=== PATIENT | male | born 1945 | race Caucasian/White ===

== ENCOUNTER 2018-04-26 00:34 | Inpatient (IN) | payer OTHER, BC ==
[2018-04-26] VITALS (8 sets, daily range): BP systolic 12–176; BP diastolic 61–104
[~2018-04-26] VITALS: Ht 182.9 cm; Wt 78.1 kg
--- NOTE | ~2018-04-26 | O ---
[facility] [place] [address] OPERATIVE REPORT Name: DESIREE ROGERS Room #: 210-P [facility] IN M.R.#: [id number] Admission: 04/26/18 Attend Phys: Randell Sanchez MD Discharge: Date of : 43 Report #: [id number] THIS REPORT FOR: //name// CC: Valentin Sanchez DATE OF SERVICE: 04/27/2018 PREOPERATIVE DIAGNOSIS: Displaced unstable fracture, right femoral neck. POSTOPERATIVE DIAGNOSIS: Displaced unstable fracture, right femoral neck. PROCEDURE: Right total hip arthroplasty. SURGEON: Manny Roldan MD INDICATIONS: This slender, active, fit 72-year-old gentleman fell at home, injuring the right hip. Previously, he was fully active and independent with only mild hip pain. Here, x-rays confirm a displaced femoral neck fracture with moderate degenerative change at the joint. He also has other general medical and cardiac issues including atrial fibrillation with a rapid rate, which has been well controlled with medical management. At the time of my preoperative evaluation, the patient and family understand the situation well and we have discussed treatment options including fixation with percutaneous screws or proximal hemiarthroplasty or total hip replacement. We have discussed that he does have some degenerative osteoarthritis at the hip joint and is still active and fit. I suspect a hemiarthroplasty might cause some ongoing symptoms and problems and we have elected to go ahead with total hip replacement. DESCRIPTION OF PROCEDURE: The patient was taken to the operating room where he was placed under general anesthesia. Prophylactic intravenous antibiotics were administered. He was turned to the left lateral decubitus position. The right hip, thigh and leg were meticulously prepped and draped. A slightly curving posterolateral skin incision was made and carried through subcutaneous tissues and fascia to expose the posterior aspect of the hip joint. The short external rotators and capsule were taken down and tagged with several Tevdek sutures. The femoral neck was found to be fractured and unstable. The head was removed. The femoral neck was trimmed down to a more appropriate level. The canal was then opened with reamers and hand broaches. The Schumacher and Nephew hip system was utilized and the femur seemed best suited for a size 14 stem. Given his fracture, I considered cementing the stem, but he seems to have solid cortical bone and the x-rays of the proximal femur looked to be satisfactory. Given this, I elected to proceed with a press-fit stem. The broach seemed to fit nicely and appeared to be secure. The trial broach was removed and attention [address] [address] OPERATIVE REPORT Name: DESIREE ROGERS Room #: 210-P [facility]#: [id number] Admission: 04/26/18 Attend Phys: Randell Sanchez MD Discharge: Date of : 43 Report #: [id number] directed to the acetabulum. Good exposure was established and the acetabulum was sequentially reamed, gradually advancing to a size 58 mm reamer. A Schumacher and Nephew 3-hole hemispherical StikTite shell was then inserted. This was positioned in alignment with his true acetabulum, which placed this in about 45 degrees off of vertical and about 20 degrees of anteversion. It was impacted into position and seated nicely and appeared to be secure. In addition, 3 screws were placed through the apex hole in the shell and these engaged a good periacetabular bone with good additional fixation. A 40 mm diameter acetabular liner was then inserted. This was positioned with the 20-degree elevated pabon at about the 10 o'clock posterior position. This snapped into place and seemed to be secure. A Schumacher and Nephew size 14 Synergy porous coated high offset femoral component was impacted into the canal. It seated nicely and appeared to be secure. A trial reduction was performed with several neck lengths and a +8 mm neck length seemed to fit most appropriately. This resulted in good alignment, range of motion, stability and satisfactory leg length. The permanent 40 mm cobalt chrome head with a +8 mm neck length was then selected and impacted on to the [place] taper neck. The hip was reduced, once again alignment, range of motion, stability and leg length seemed to be satisfactory. The wound was copiously irrigated. Good hemostasis was established. The capsule and short external rotators were then repaired back to bone using the #1 Tevdek sutures, passed through drill holes in the greater trochanter. A single Hemovac was left deep to the fascia exiting through a separate stab incision. The fascia was then closed with multiple #1 Vicryl sutures. The subcutaneous tissues were closed with 0 Monocryl. The skin was closed with skin jason. A sterile dressing was applied. The patient was awakened and returned to recovery room in good condition. By: 1006 1022 Manny Roldan MD /chayito
[~2018-04-26 00:34] MED LIST: CIPROFLOXACIN500 M1 PO; FLOMAX0.4 MG PO; LISINOPRIL-HCT1 EACH PO; NORCO 5-325 TA1 EACH PO
[2018-04-26] MEDS ORDERED: LISINOPRIL40 MG PO (00:46)
[2018-04-26 00:50] LABS: BASOPHILS 0.6 % (0.0-2.0); EOSINOPHILS 1.9 % (0.0-3.0); HEMOGLOBIN 14.9 gm/dL (14.0-18.0); LYMPHOCYTES 18.4 % (24.0-44.0); MCH 30.2 pg (26.0-34.0); MONOCYTES 5.6 % (1.0-8.0); PLATELET COUNT 161 thou/uL (150-400); POLYS 73.5 % (36.0-66.0); RBC 4.94 mil/uL (4.50-6.00); RDW 13.8 % (10.5-14.5); WBC 9.5 thou/uL (4.0-11.0)
[2018-04-26 00:58] LABS: ANION GAP 10 mmol/L (7-16); BUN 35 mg/dL (7-18); CALCIUM 9.4 mg/dL (8.5-10.1); CHLORIDE 106 mmol/L (98-107); CO2 27 mmol/L (21-32); CREATININE 1.5 mg/dL (0.7-1.3); GLUCOSE 117 mg/dL (74-106); POTASSIUM 3.8 mmol/L (3.5-5.1); SODIUM 143 mmol/L (136-145)
[2018-04-26 01:00] LABS: APTT 24.9 Seconds (24.5-32.8); PROTIME 10.8 Seconds (9.3-11.4)
[2018-04-26 01:06] LABS: ALBUMIN 3.6 g/dL (3.4-5.0); MAGNESIUM 1.9 mg/dL (1.8-2.4); SGOT 20 U/L (15-37); SGPT 33 U/L (30-65); TOTAL BILIRUBIN 0.4 mg/dL (<0.1-1.0); TOTAL PROTEIN 7.1 g/dL (6.4-8.2); TROPONIN-I <0.06 ng/mL (<0.06)
--- NOTE | 2018-04-26 05:29 | NUR ---
PT WAS AN ER ADMIT WHO CAME UP TO THE FLOOR AT 0130AM WITH HIP FRACTURE AND AFIB. PT WAS ON CARDIZEM DRIP FOR AFIB WITH RVR. PT IS STABLE AT DENIES MINIMUM PAIN WITH MOVEMENT, DAUGHTER IS PRESENT AT BEDSIDE. PT IS ALERT AND ORIENTED WITH NO SIGN OF DISTRESS NOTED IN PT. ADMISSION ASSESSMENT AND EDUCATION COMPLETED WITH PATIENT AND DAUGHTER. CARDIZEM BOLUS WAS ORDERED BY WATER PROOFER DUE TO CONTINONUS ELEVATED HR. PT CONVERTED BACK TO SINUS BRADYCARDIA AT 0327AM. PT IS ON ROOM AIR, VITAL SIGNS STABLE. DENIES ANY FURTHER NEEDS AT THIS TIME.
--- NOTE | 2018-04-26 08:54 | EKG ---
[address] [address] ELECTROCARDIOGRAM REPORT Name: DESIREE ROGERS Room #: 206-P ADM IN M.R.#: [id number] Admission: 04/26/18 Attend Phys: Randell Sanchez MD Discharge: Date of : 43 Report #: [id number] THIS REPORT FOR: //name// [facility] ED Test Date: 2018-04-26 Test Time: 00:42:57 Pat Name: DESIREE ROGERS Department: Room: 206 Gender: M Director Of Institutional Sales: ANTIONETTE : 1945 Requested By: Sander Marquis Order Number: [id number] MD: Oz Slater Measurements Intervals [place] Rate: 155 P: [place]: QRS: 2 QRSD: 84 T: 26 QT: 307 QTc: 493 Interpretive Statements Atrial fibrillation with rapid V-rate Right ventricular conduction delay Repolarization abnormality, prob rate related Baseline wander in lead(s) V6 No previous ECG available for comparison Electronically Signed On 04-26-2018 8:54:44 CAR COUPLER by Oz Slater [email or web address] <ELECTRONICALLY SIGNED> By: Oz Slater MD, [facility] 04/26/18 0854 004 Oz Slater MD, [facility] /EPI
--- NOTE | 2018-04-26 09:33 | 2DMMODE ---
[facility] [address] [place] [address] 2 D/M-MODE ECHOCARDIOGRAM Name: DESIREE ROGERS Room #: 206-P ADM IN ..#: [id number] Admission: 04/26/18 Attend Phys: Randell Sanchez MD Discharge: Date of : 41 Date of Service: 04/26/18 0933 Report #: [id number] THIS REPORT FOR: //name// APPROVED REPORT Study performed: 04/26/2018 08:22:51 EXAM: Comprehensive 2D, Doppler, and color-flow Echocardiogram Patient Location: Bedside Room #: 206 Status: routine BSA: 1.97 HR: 63 bpm BP: 107/61 mmHg Rhythm: NSR Other Information Study Quality: Adequate Indications Atrial Fibrillation Hypertension/HDD 2D Dimensions RVDd: 32.80 mm IVSd: 12.46 (7-11mm) LVOT Diam: 19.10 (18-24mm) LVDd: 42.68 mm PWd: 11.67 (7-11mm) Ascending Ao: 29.80 (22-36mm) LVDs: 29.36 (25-40mm) Aortic Root: 31.15 mm IVC: 14.00 mm Volumes Left Atrial Volume (Systole) Single Plane 4CH: 36.07 mL Single Plane 2CH: 24.80 mL LA ESV Index: 17.00 mL/m2 Aortic Valve AoV Peak Isaias.: 1.43 m/s AO Peak Gr.: 8.20 mmHg LVOT Max P.28 mmHg LVOT Max V: 1.15 m/s CHAZ Vmax: 2.30 cm2 Mitral Valve E/A Ratio: 1.0 MV Decel. Time: 230.91 ms MV E Max Isaias.: 1.01 m/s [facility] [address] [place] [address] 2 D/M-MODE ECHOCARDIOGRAM Name: ROGERSDESIREE L Room #: 206-[facility] IN [facility].#: [id number] Admission: 04/26/18 Attend Phys: Randell Sanchez MD Discharge: Date of : 41 Date of Service: 04/26/18 0933 Report #: [id number] MV A Isaias.: 0.97 m/s MV PHT: 66.96 ms IVRT: 87.66 ms Pulmonary Valve PV Peak Isaias.: 0.97 m/s PV Peak Gr.: 3.81 mmHg Pulmonary Vein P Vein S: 0.46 m/s P Vein A: 0.33 m/s P Vein D: 0.35 m/s P Vein A Dur.: 110.7 msec P Vein S/D Ratio: 1.31 Tricuspid Valve TR Peak Isaias.: 2.68 m/s TR Peak Gr.: 28.80 mmHg PA Pressure: 33.00 mmHg Left Ventricle The left ventricle is normal size. There is normal LV segmental wall motion. There is normal left ventricular wall thickness. The left ventricular systolic function is normal. The left ventricular ejection fraction is within the normal range. LVEF is 55-60%. The left ventricular diastolic function is normal. Right Ventricle The right ventricle is normal size. The right ventricular systolic function is normal. Atria The left atrium size is normal. The right atrium size is normal. Aortic Valve The aortic valve is normal in structure. No aortic regurgitation is present. There is no aortic valvular stenosis. Mitral Valve The mitral valve is normal in structure. Trace mitral regurgitation. No evidence of mitral valve stenosis. Tricuspid Valve The tricuspid valve is normal in structure. There is trace to mild tricuspid regurgitation. Estimated PAP 33 mmHg. There is mild pulmonary hypertension. [place] [id number] 2 D/M-MODE ECHOCARDIOGRAM Name: DESIREE ROGERS Room #: 206-P ADM IN M.R.#: [id number] Admission: 04/26/18 Attend Phys: Randell Sanchez MD Discharge: Date of : 41 Date of Service: 04/26/18 0933 Report #: [id number] Pulmonic Valve The pulmonary valve is normal in structure. There is no pulmonic valvular regurgitation. Great Vessels The aortic root is normal in size. IVC is normal in size and collapses >50% with inspiration. <Conclusion> The left ventricle is normal size. There is normal left ventricular wall thickness. The left ventricular systolic function is normal. The right ventricle is normal size. The left atrium size is normal. The right atrium size is normal. The aortic valve is normal in structure. Trace mitral regurgitation. There is trace to mild tricuspid regurgitation. Estimated PAP 33 mmHg. <ELECTRONICALLY SIGNED> By: Jeremias Beltran MD 04/26/1833 2 2 Jeremias Beltran MD /INF
[2018-04-26 13:23] LABS: URINE BILIRUBIN NEGATIVE (Negative); URINE BLOOD 1+ (Negative); URINE CLARITY CLOUDY; URINE COLOR YELLOW; URINE GLUCOSE-RANDOM* NEGATIVE (Negative); URINE KETONES NEGATIVE (Negative); URINE LEUKOCYTES-REFLEX 3+ (Negative); URINE NITRITE-REFLEX NEGATIVE (Negative); URINE PROTEIN (DIPSTICK) NEGATIVE (Negative); URINE SPECIFIC GRAVITY >= 1.030 (1.005-1.035); URINE UROBILINOGEN 0.2 E.U./dl (0.2-1.0)
[2018-04-26 13:28] LABS: SQUAMOUS 0-3 Few /LPF (0-3)
[2018-04-26 13:29] LABS: AMORPHOUS URATES Few /LPF (None Seen); CASTS None Seen /LPF (None Seen); URINE RBC 0-2 Rare /HPF (0-2); URINE WBC-REFLEX >25 Many /HPF (0-5)
--- NOTE | 2018-04-26 16:56 | NUR ---
Case opened to follow for dc planning needs. Pt admitted with hip fx from a fall in his driveway and is currently on the tele for afib/rvr. Possible surgery tomorrow. Marketing Developer visited with the pt and his Terra at bedside. He is a&ox4 and was indep and active prior to admission. They live in a ranch style home with one step to enter. Terra has MS and uses a scooter. She is indep with adl's but does not drive. Cm role introduced along with potential dc planning for HH services or [place] SNF listing provided. Pt is hopeful he will be WBAT postop and do well enough to go home with hh. They deny any hh preference. He does not use an assistive device. Support provided. Will follow along for rehab recommendations.
--- NOTE | 2018-04-26 17:28 | NUR ---
assessment a s charted - meds as per jun - patient given morphine x 3 doses for co's of pain in r hip with mod effect. winston diet and fluids. with no co's of nausea. pt has been resting in bed this shift - to caat scan for hip scan - pt to have r total hip tomorrow am. pt @ 1325 noted to hav eincresed heart rate - pt had gone back into a fib rate as high as 140-150's Jennifer STORE GROCERY MERCHANDISER ntoifed and patient given lopressor 5 mgs iv with rate dropping into the 60-90's occassionaly jumps up into the 120's and then comes back down. at the bedside for the day. no co's at the present time. will be staying with patient thonight - will transfer to room 210 so that she is able to sleep.
--- NOTE | 2018-04-26 17:52 | NUR ---
assessment as charted - meds as per mar - no co's of pain or nausea. winston diet and fluids. pt extremely unsteady on feet - does not use the wlaker safely - each time patient stands she is incontinent of urine/ brief placed - when pulled down patient incont on floor insreasing her risk for falling. patient does not use precautions when going to sit in chair. patient us been up to the chair for lunch and dinner, seen by phys therapy. pt confused/forgetful at time not sure of where she is and what is happening. wu made med/surg patient this am - moniotr removed. no co's at the present time.
--- NOTE | 2018-04-26 22:20 | EKG ---
[address] [address] ELECTROCARDIOGRAM REPORT Name: DESIREE ROGERS Room #: 210-P ADM IN M.R.#: [id number] Admission: 04/26/18 Attend Phys: Randell Sanchez MD Discharge: Date of : 43 Report #: [id number] THIS REPORT FOR: //name// [facility] Test Date: 2018-04-26 Test Time: 13:57:09 Pat Name: DESIREE ROGERS Department: Room: 210 Gender: M Jig Borer: Olayinka MARINO : 1945 Requested By: Jennifer Frederick Order Number: [id number] MD: Nirav Hill Measurements Intervals [place] Rate: 112 P: [place]: QRS: 51 QRSD: 99 T: -58 QT: 328 QTc: 448 Interpretive Statements Atrial fibrillation Borderline repolarization abnormality Compared to ECG 04/26/2018 00:42:57 No significant changes Electronically Signed On 04-26-2018 22:20:12 MAINTAINER PLANT by Nirav Hill [email or web address] <ELECTRONICALLY SIGNED> By: Nirav Hill MD 04/26/18 2220 D: 01/1356 56 Nirav Hill MD /SHARITA
--- NOTE | 2018-04-27 04:17 | NUR ---
ASSESSMENT DOCUMENTED.PT RESTING IN NO ACUTE DISTRESS AT THIS TIME.VSS.PT BEEN SR ALL NOC UNTIL AROUND 0330 THIS AM THAT HE WENT INTO AFIB WITH HR IN 130S-140S AFTER GETTING ONTO THE BEDPAN.EKG COMPLETED SHOWING AFIB/AFLUTTER.METOPROLOL IVP 5MG GIVEN PER ORDERS WITH HR INSTANLY DROPPING TO 70S.CURRENTLY HR AT 90 WITH EPISODES JUMPING TO LOW 100S.COMMERCIAL ENERGY RATER NOTIFIED ADVISED TO KEEP MONITORING.PT NPO AFTER MIDNOC FOR R HIP PROCEDURE TODAY.MORPHINE GIVEN FOR HIP PAIN WITH PARTIAL RELIEF.WILL CONT TO MONITOR PER POC.
[2018-04-27 04:54] LABS: HEMATOCRIT 38.4 % (42.0-52.0); MCH 29.9 pg (26.0-34.0); MCHC 33.1 g/dL (28.0-37.0); MCV 90.6 fL (80.0-100.0); RBC 4.24 mil/uL (4.50-6.00); RDW 14.1 % (10.5-14.5)
[2018-04-27 04:59] VITALS: BP 148/93
[2018-04-27 05:01] LABS: HEMOGLOBIN 12.7 gm/dL (14.0-18.0)
[2018-04-27 05:08] LABS: CALCIUM 8.2 mg/dL (8.5-10.1); CREATININE 1.1 mg/dL (0.7-1.3); MAGNESIUM 1.8 mg/dL (1.8-2.4); POTASSIUM 3.7 mmol/L (3.5-5.1)
--- NOTE | 2018-04-27 06:12 | NUR ---
DR ANNE NOTIFIED OF THE PT CHANGES IN HR AND RHYTHM FROM SR/SB TO AFIB/AFLUTTER WITH HR LOW IN 50S AND HIGH 130S.DR MADSEN INSTRUCTED TO KEEP MONITORING PT UNLESS PT IS SUSTAINING HR>100.PT DENIES ANY DISCOMFORT AT THIS TIME.
[2018-04-27 07:04] VITALS: BP 152/68
--- NOTE | 2018-04-27 07:43 | HC ---
[facility] [place] [address] [place] [address] CONSULTATION Name: DESIREE ROGERS Room #: 210-P [facility] IN M.R.#: [id number] Admission: 04/26/18 Attend Phys: Randell Sanchez MD Discharge: Date of : 43 Report #: [id number] THIS REPORT FOR: //name// CC: Valentin Sanhcez DATE OF SERVICE: 04/26/2018 CHIEF COMPLAINT: Right femoral neck fracture. HISTORY OF PRESENT ILLNESS: This healthy, active 72-year-old gentleman stumbled and fell injuring the right hip. X-rays and CT scan confirmed a fracture of the femoral neck, which is impacted and displaced moderately. He also has moderate degenerative osteoarthritis of the hip. His medical history is also notable for tachycardia with apparent atrial fibrillation, which is being evaluated and treated at this time. At the time of my evaluation, he is alert and oriented and his heart rate and rhythm appeared to be normal. His family is with him and we have had a lengthy discussion regarding his history and current findings. They note that he has been generally fit and active and has not had significant hip pain nor previous falls or problems. He had no significant problems prior to this new event, but now is quite uncomfortable and has difficulty with any movement of the right hip. He denies any other areas of injury. We discussed the nature of the fracture and treatment options. We have reviewed the potential for nonsurgical management or surgical management with fixation using percutaneous screws or TFN nail. We have also reviewed replacement of the fractured head and neck with either a hemiarthroplasty or total hip replacement. Given that he is generally fit and active and given the location and nature of the fracture, I think either hemiarthroplasty or total hip replacement is probably the best option. He does have moderate hip arthritis, but is otherwise rather fit and active. Consequently, I think total hip replacement may be the best option. His family have considered this and agreed, would like to proceed. Pending cardiac clearance, we may be able to proceed tomorrow morning and I believe I have secured a 7:30 start time for his surgery. We will plan to proceed with right total hip arthroplasty at that time. <ELECTRONICALLY SIGNED> By: Manny Roldan MD 04/27/18 0743 [id number] [id number] Manny Roldan MD /nt
--- NOTE | 2018-04-27 09:10 | EKG ---
[address] [address] ELECTROCARDIOGRAM REPORT Name: DESIREE ROGERS Room #: 210-P ADM IN M.R.#: [id number] Admission: 04/26/18 Attend Phys: Randell Sanchez MD Discharge: Date of : 43 Report #: [id number] THIS REPORT FOR: //name// [facility] Test Date: 2018-04-27 Test Time: 03:56:08 Pat Name: DESIREE ROGERS Department: Room: 210 P Gender: M Licensing Court Magistrate: [email or web address] : 1945 Requested By: Randell Sanchez Order Number: [id number] MD: Oz Slater Measurements Intervals [place] Rate: 95 P: [place]: QRS: 3 QRSD: 109 T: 60 QT: 358 QTc: 450 Interpretive Statements Atrial fibrillation Septal infarct, age indeterminate Compared to ECG 04/26/2018 13:57:09 Heart rates have slowed Electronically Signed On 04-27-2018 9:10:24 INCINERATOR PLANT LABORER by Oz Slater [email or web address] <ELECTRONICALLY SIGNED> By: Oz Slater MD, [facility] 04/27/18 0910 0356 5 Oz Slater MD, [facility] /EPI
--- NOTE | 2018-04-27 09:10 | EKG ---
[address] [place] [address] ELECTROCARDIOGRAM REPORT Name: DESIREE ROGERS Room #: 210-P ADM IN M.R.#: [id number] Admission: 04/26/18 Attend Phys: Randell Sanchez MD Discharge: Date of : 43 Report #: [id number] THIS REPORT FOR: //name// [facility] Test Date: 2018-04-27 Test Time: 03:48:40 Pat Name: DESIREE ROGERS Department: Room: 210 P Gender: M Mangle Roller: : 1945 Requested By: Cris Estrella Order Number: [id number] MD: Oz Slater Measurements Intervals [place] Rate: 144 P: [place]: QRS: -6 QRSD: 85 T: QT: 375 QTc: 581 Interpretive Statements Atrial fibrillation Anteroseptal infarct, old Repolarization abnormality, prob rate related Prolonged QT interval Compared to ECG 04/26/2018 13:57:09 ST and T wave abnormality is more pronounced Electronically Signed On 04-27-2018 9:09:58 ASSOCIATE TEACHER by Oz Slater [email or web address] <ELECTRONICALLY SIGNED> By: Oz Slater MD, [facility] 04/27/18 0909 [id number] [id number] Oz Slater MD, [facility] /EPI
--- NOTE | 2018-04-27 17:25 | NUR ---
ASSESSMENT CHARTED - PT TO SURG THIS AM FOR TOTAL HIP REPLACEMENT. - VSS POST OP HAVE BEEN STABLE - INCSION C/D/I - WITH YUNG DRESSING AND HAMOVAC INSITU. ANY DIET AND FLUIDS. MEDS PER JUN - GIVEN HYDROCODONE FOR CO'S OF PAIN WITH GOOD RELIEF. PT WITH TEDS ON BLIAT - ICE PACK TO R HIP. PTPSOT UP WITH RATE UP IN THE 150'S GIVEN LOPRESSOR IV ORDERED - RATE DOWN TO THE LOW 100'S AND IS AT PRESENT IN THE 60'S PT APPEARS TO BE IN EITHER AFIB OR SR. FLUIDS RUNNING ORDERED - EDUCATION ON POST OP INCISION CARE GIVEN TO AND PATIENT. NO CO'S AT THE PRESENT TIME.
[2018-04-27 19:06] VITALS: BP 110/71
[2018-04-28 00:36] VITALS: BP 106/72
--- NOTE | 2018-04-28 01:46 | NUR ---
ASSESSMENTS CHARTED. PATIENT BACK IN AFIB, RESTARTED ON IV CARDIZEM. ICE PACK MAINTAINED THROUGH SHIFT.
[2018-04-28 05:30] LABS: HEMATOCRIT 30.7 % (42.0-52.0); MCH 30.9 pg (26.0-34.0); MCHC 34.8 g/dL (28.0-37.0); MCV 88.7 fL (80.0-100.0); RBC 3.46 mil/uL (4.50-6.00); RDW 13.5 % (10.5-14.5); WBC 15.3 thou/uL (4.0-11.0)
[2018-04-28 05:36] VITALS: BP 105/55
[2018-04-28 05:47] LABS: HEMOGLOBIN 10.7 gm/dL (14.0-18.0)
[2018-04-28 08:00] VITALS: BP 111/60
[2018-04-28 12:19] VITALS: BP 131/62
[2018-04-28 16:00] VITALS: BP 133/63
--- NOTE | 2018-04-28 17:01 | NUR ---
ASSESSMENTS CHARTED - MEDS [PER MAR - GIVEN FLECAINIDE THIS AM AND IV CARDIZEM D/C'D. PT WITH CO'S OF NO BM - GIVEN 1/2 BOTTLE OF MAG CITRATE AND STOOL SOFTNER STARTED AND PATIENT IN BATHROOM AT PRESENT TIME. PT STARTED ON CEFTIN ORDERED. GIVEN HYDROCODONE X 2 DOSES FOR PAIN PRIOR TO THERAPY TODAY - PATIENT HAS STATED THAT PAIN HAS BEEN UNDERCONTROL. PT UP TO THE CHAIR. AMBULATED TO THE BATHROOM WITH THE USE OF WALKER. NO CO'S AT THE PRESENT TIME.
[2018-04-28 20:04] VITALS: BP 150/68
[2018-04-29 03:57] VITALS: BP 146/78
[2018-04-29 05:38] LABS: BASOPHILS 0.2 % (0.0-2.0); EOSINOPHILS 0.7 % (0.0-3.0); HEMATOCRIT 29.4 % (42.0-52.0); HEMOGLOBIN 10.3 gm/dL (14.0-18.0); LYMPHOCYTES 8.7 % (24.0-44.0); MCH 31.3 pg (26.0-34.0); MCHC 34.9 g/dL (28.0-37.0); MCV 89.8 fL (80.0-100.0); PLATELET COUNT 136 thou/uL (150-400); POLYS 82.4 % (36.0-66.0); RBC 3.28 mil/uL (4.50-6.00); RDW 13.8 % (10.5-14.5); WBC 10.9 thou/uL (4.0-11.0)
[2018-04-29 05:52] LABS: CALCIUM 8.3 mg/dL (8.5-10.1); CREATININE 1.1 mg/dL (0.7-1.3); MAGNESIUM 2.4 mg/dL (1.8-2.4); POTASSIUM 3.9 mmol/L (3.5-5.1)
[2018-04-29 08:00] VITALS: BP 132/63
--- NOTE | 2018-04-29 12:18 | NUR ---
ASSUMED PATIENT CARE THIS AM. PATIENT LYING IN BED, A&O. ROOM AIR. HEMOVAC DRAIN REMOVED THIS AM. YUNG DRESSING C/D/I. PAIN MANAGED WITH ORAL MEDICATION. LOW FALL RISK. PATIENT USES CALL LIGHT APPROPRIATLY. UP X1 ASSIST WITH GAIT BELT AND WALKER, STEADY GAIT. PATIENT UP WITH PHYSICAL THERAPY THIS AM. NO COMPLAINTS STATED. TOLERATING DIET. PLAN TO MONITOR SURGICAL ASST, CONTINUE WITH MEDICATION REGIMEN, PLAN TO DISCHARGE AFTER SAFE FROM CARDIOLOGY STAND POINT, POSSIBLY 1-[address] FLORES THIS AM. PATIENT AGREES WITH PLAN OF CARE. FAMILY AT BEDSIDE AT THIS TIME.
[2018-04-29 12:52] VITALS: BP 127/64
[2018-04-29 16:00] VITALS: BP 168/70
--- NOTE | 2018-04-29 19:23 | NUR ---
PATIENT BLADDER SCANNED THIS AFTERNOON, SHOWED >999ML. DR. OCASIO PAGEEva, ORDERS RECIEVED.
[2018-04-29 20:19] VITALS: BP 144/91
[2018-04-30] VITALS (7 sets, daily range): BP systolic 106–168; BP diastolic 50–86
--- NOTE | 2018-04-30 02:52 | NUR ---
RECEIVED PATIENT FOR STRAIGHT CATHETERIZATION, PATIENT UNABLE TO PEE. STRAIGHT CATH USING ASEPTIC TECHNIQUE DONE, LIGHT YELLOWISH URINE OUTPUT OF 600 ML NOTED. AOX4. HR 120'S TO 130'S, SINUS ARRYTHMIA TO FLUTTER NOTED. PRN METOPROLOL GIVEN. PULSES 2+/2+. DENIES PAIN. DENIES NUMBNESS OR TINGLING SENSATION. CLEAR LUNG SOUNDS. ON ROOM AIR. BS+, ABDOMEN SOFT NON TENDER. RIGHT HIP INCISION DRESSING C/D/I. THIGH HIGH JOSE ALEJANDRO HOSE ON. ABDUCTOR PILLOW APPILED. RIGHT WRIST IV INTACT AND FLUSHES WELL. FF UP POC.
[2018-04-30 11:17] LABS: URINE BILIRUBIN NEGATIVE (Negative); URINE BLOOD TRACE (Negative); URINE CLARITY CLEAR; URINE COLOR YELLOW; URINE GLUCOSE-RANDOM* NEGATIVE (Negative); URINE KETONES NEGATIVE (Negative); URINE LEUKOCYTES NEGATIVE (Negative); URINE NITRITE NEGATIVE (Negative); URINE PROTEIN (DIPSTICK) NEGATIVE (Negative); URINE UROBILINOGEN 0.2 E.U./dl (0.2-1.0)
--- NOTE | 2018-04-30 13:18 | NUR ---
met with patient and at bedside. Patient worked with therapy today who recommends home with HH. Discussed with patient who cont plan for home with HH. No preference for HH agency and agreeable to [facility]. Will need walker for home. Provider Plus notified. Patient has one step to enter home then all needs on one level.
--- NOTE | 2018-04-30 18:09 | NUR ---
ASSUMED CARE OF PT AT SHIFT CHANGE. ASSESSMENTS CHARTED. MEDS GIVEN PER JUN. PT AOX4, VSS, PT WAS TACHYCARDIC THIS AM IN 130S, IV METOPROLOL GIVEN, TACHYCARDIA RESOLVED SINCE. C/O PAIN ONCE DURING SHIFT, MANAGED WITH PO PAIN MEDS. PT GOT UP WITH PHYSICAL THERAPY TWICE THIS SHIFT, TOLERATED WELL. SPOUSE AT BEDSIDE THROUGHOUT DAY. URINE OUTPUT ADEQUATE, PT HAS BEEN USING URINAL, THIS NURSE DID NOT FEEL IT WAS NECESSARY TO BLADDER SCAN SINCE PT WAS URINATING WELL. PT DID MENTION A SLIGHT BURNING WHEN URINATING, PROVIDER AWARE, ORDERS RECEIVED FOR UA-- REFER TO RESULTS. PT HAS STATED BURNING HAS RESOLVED SINCE.
[2018-05-01 04:43] LABS: CALCIUM 8.4 mg/dL (8.5-10.1); CREATININE 1.1 mg/dL (0.7-1.3); MAGNESIUM 2.2 mg/dL (1.8-2.4); POTASSIUM 3.9 mmol/L (3.5-5.1)
[2018-05-01 04:44] LABS: HEMATOCRIT 29.9 % (42.0-52.0); HEMOGLOBIN 10.3 gm/dL (14.0-18.0); MCH 30.5 pg (26.0-34.0); MCHC 34.5 g/dL (28.0-37.0); MCV 88.6 fL (80.0-100.0); RBC 3.38 mil/uL (4.50-6.00); RDW 13.7 % (10.5-14.5); WBC 8.3 thou/uL (4.0-11.0)
[2018-05-01 04:56] VITALS: BP 135/81
--- NOTE | 2018-05-01 06:13 | NUR ---
ASSUMED CARE AT 1900. PT ALERT AND ORIENTED. DENIES PAIN. DRESSING ON RIGHT HIP INTACT. PT WAS TACHY IN 120S AT THE BEGINNING SHIFT AND HAD PREVIOUS RECEIVED METOPROLOL 50 ER. HR CONTROLLED AFTER 1 HOUR . NO TACHY > 120. REFUSED HIS PHENAZOPYRIDINE. PT STATES HE DOES NOT NEED IT BECAUSE HE IS VOIDING OK NOW. WILL CONTINUE TO MONITOR.
[2018-05-01 08:06] VITALS: BP 105/61
--- NOTE | 2018-05-01 08:21 | EKG ---
[address] [address] ELECTROCARDIOGRAM REPORT Name: DESIREE ROGERS Room #: 210-P ADM IN M.R.#: [id number] Admission: 04/26/18 Attend Phys: Randell Sanchez MD Discharge: Date of : 41 Report #: [id number] THIS REPORT FOR: //name// [facility] Test Date: 2018-05-01 Test Time: 07:35:02 Pat Name: DESIREE ROGERS Department: Room: 210 P Gender: M Interior Wall Assembler: YARELI : 1945 Requested By: Suzanne Ruelas Order Number: [id number] MD: Oz Slater Measurements Intervals [place] Rate: 112 P: MI: QRS: 40 QRSD: 122 T: 122 QT: 311 QTc: 425 Interpretive Statements Atrial flutter Right ventricular conduction delay Anteroseptal infarct, old Compared to ECG 04/27/2018 03:56:08 no significant change was found Electronically Signed On 05-01-2018 8:21:32 MANUFACTURING STOREPERSON by Oz Slater [email or web address] <ELECTRONICALLY SIGNED> By: Oz Slater MD, [facility] 05/01/18 0821 4 4 Oz Slater MD, [facility] /EPI
[2018-05-01] MEDS ORDERED: XARELTO10 MG PO (12:46)
[2018-05-01] MEDS ORDERED: TAMBOCOR 100 M100 M1 PO (12:46)
[2018-05-01] MEDS ORDERED: SENNA8.6 MG PO (12:47)
[2018-05-01] MEDS ORDERED: METOPROLOL SUCC50 MG PO (12:47)
[2018-05-01] MEDS ORDERED: PHENAZOPYRIDIN100 M1 PO (12:47)
[2018-05-01] MEDS ORDERED: CEFDINIR300 MG PO (12:48)
[2018-05-01 12:49] VITALS: BP 95/55
--- NOTE | 2018-05-01 12:57 | NUR ---
PT. DISCHARGING TODAY TO HOME WITH [facility]. NOTIFIED CANDACE IN ADM. AT [facility] OF DISCHARGE AND DC ORDERS COMPLETE. DCP ARRANGED TRANSPORT [facility] FOR PT. AND FOR [id number].
[2018-05-01 13:33] VITALS: BP 168/62
[2018-05-01 14:16] VITALS: BP 130/69
--- NOTE | 2018-05-01 14:18 | NUR ---
PATIENT TO DC HOME WITH HH. [facility] AWARE ORDERS IN CHART. WALKER DELIVERED TO ROOM. AND SPOUSE NEED TRANSPORT HOME. HAS A SCOOTER CHAIR, SHE HAS MS. DC EYEGLASS CUTTER ARRANGED [facility] FOR HOME.
--- NOTE | 2018-05-01 16:56 | NUR ---
ASSUMED CARE OF PT AT SHIFT CHANGE. ASSESSMENTS CHARTED. MEDS GIVEN PER JUN. PT AOX4, VSS, PT C/O PAIN BUT DID NOT FEEL NEEDED PAIN MEDS. SPOUSE AT BEDSIDE THROUGHOUT SHIFT. PT GOT UP WITH PT, TOLERATED WELL. URINE OUTPUT ADEQUATE, NO C/O PAIN/BURNING/HESITANCY WHILE URINATING. PT REMAINED SINUS CARLITOS TO SINUS RHYTHM ON MONITOR. O2 SATS REMAINED WNL ON ROOM AIR. NO S/SX OF CARDIAC OR RESP DISTRESS NOTED. RECEIVED ORDERS FOR DISCHARGE. PT AND PT SPOUSE EDUCATED ON DISCHARGE INFO, COMMUNICATES UNDERSTANDING. TELE TAKEN OFF, IV REMOVED. PT LEFT UNIT WITH ALL BELONGINGS AT APPROX 1600.
== END 2018-05-01 16:15 | disposition home health service (06) | DRG 853 ==
LOC: ER 00:34 → 2N 00:51 → EROBS 00:51 → 2N 01:29
PROVIDERS: Emergency Medicine; Orthopaedic Surgery; ADMIT Internal Medicine
PROC: 0SR901A Replacement of Right Hip Joint with Metal Synthetic Substitute, Uncemented, Open Approach (ICD-10-PCS; principal; 2018-04-27)
DX: A41.9 Sepsis, unspecified organism (principal); S72.001A Fracture of unspecified part of neck of right femur, initial encounter for closed fracture; N17.9 Acute kidney failure, unspecified; N39.0 Urinary tract infection, site not specified; I48.3 Typical atrial flutter; D64.9 Anemia, unspecified; M16.11 Unilateral primary osteoarthritis, right hip; N18.3 Chronic kidney disease, stage 3 (moderate); I48.0 Paroxysmal atrial fibrillation; K59.00 Constipation, unspecified; N40.0 Benign prostatic hyperplasia without lower urinary tract symptoms; R41.81 Age-related cognitive decline; I12.9 Hypertensive chronic kidney disease with stage 1 through stage 4 chronic kidney disease, or unspecified chronic kidney disease; W00.0XXA Fall on same level due to ice and snow, initial encounter; Y93.89 Activity, other specified; Y92.89 Other specified places as the place of occurrence of the external cause; Y99.8 Other external cause status; Z85.51 Personal history of malignant neoplasm of bladder; Z87.442 Personal history of urinary calculi; Z87.891 Personal history of nicotine dependence; Z79.82 Long term (current) use of aspirin; Z79.899 Other long term (current) drug therapy
CPT/HCPCS: 10081; 50010; 50101; 50382; 50414; 50455; 51412; 51771; 53000; 53367; 56521; 56525; 56527; 57095; 57103; 62110; 62900; 70005

== ENCOUNTER → 2018-05-31 | Outpatient (CLI) | payer OTHER, BC ==
[~2018-05-31] MED LIST changes: +CEFDINIR300 MG PO; +LISINOPRIL40 MG PO; +METOPROLOL SUCC50 MG PO; +PHENAZOPYRIDIN100 M1 PO; +SENNA8.6 MG PO; +TAMBOCOR 100 M100 M1 PO; +XARELTO10 MG PO
== END ==
LOC: NUC 08:13
DX: I48.91 Unspecified atrial fibrillation (principal); I48.92 Unspecified atrial flutter; R94.31 Abnormal electrocardiogram [ECG] [EKG]; I10 Essential (primary) hypertension

== ENCOUNTER 2018-06-12 15:38 | Inpatient (IN) | payer OTHER, BC ==
[~2018-06-12] VITALS: Ht 182.9 cm; Wt 77.9 kg
[2018-06-12 18:12] LABS: ABSOLUTE NEUTROPHILS 5.3 thou/uL (1.4-8.2); BASOPHILS 0.5 % (0.0-2.0); EOSINOPHILS 2.3 % (0.0-3.0); HEMATOCRIT 38.6 % (42.0-52.0); HEMOGLOBIN 12.7 gm/dL (14.0-18.0); LYMPHOCYTES 13.3 % (24.0-44.0); MCH 29.7 pg (26.0-34.0); MCHC 32.8 g/dL (28.0-37.0); MCV 90.4 fL (80.0-100.0); MONOCYTES 5.9 % (1.0-8.0); PLATELET COUNT 197 thou/uL (150-400); RBC 4.27 mil/uL (4.50-6.00); RDW 14.3 % (10.5-14.5); WBC 6.8 thou/uL (4.0-11.0)
[2018-06-12 18:14] LABS: CALCIUM 9.1 mg/dL (8.5-10.1); CREATININE 1.5 mg/dL (0.7-1.3); POTASSIUM 3.9 mmol/L (3.5-5.1)
[2018-06-12 18:20] LABS: INR 1.1; PROTIME 11.8 Seconds (9.3-11.4)
[2018-06-12] MEDS ORDERED: LASIX 40 MG TAB40 M2 PO (19:41)
[2018-06-12] MEDS ORDERED: KLOR-CON M2020 MEQ PO (19:42)
[2018-06-12] MEDS ORDERED: FLOMAX0.4 MG PO (19:42)
--- NOTE | 2018-06-12 19:44 | NUR ---
PATIENT A DIRECT ADMISSION FROM DR. GUADALUPE OFFICE. PATIENT ARRIVED TO UNIT AROUND 1630. A&OX4, ROOM AIR. UP WITH STAND BY ASSIST, WITH WALKER. 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 AT BEDSIDE.
[2018-06-12 19:47] VITALS: BP 119/56
[2018-06-13] VITALS (8 sets, daily range): BP systolic 115–134; BP diastolic 61–91
--- NOTE | 2018-06-13 05:47 | NUR ---
PATIENTS CARES WERE ASSUMED AT SHIFT CHANGE. PATIENT WAS ASSESSED AND MEDS WERE PASSED. HOURLY ROUNDING WAS DONE AND PATIENT DID APPER TO BE SLEEPING WELL. SCRUB OF THE CHEST DONE FOR SURGERY. PATIENT TO HAVE A PACEMAKER PLACED TODAY. BED IS IN A LOW AND LOCKED POSITION.
--- NOTE | 2018-06-13 17:14 | NUR ---
patient admits with tachycardia, pacemaker placement today. Patient with prev Right hip fx. 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 Sp reports he has stool riser, bath bench and walker. 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 He and retired. /patient drive. does use a rolator walker. he anticpates no needs at dc. casemgt following if needs arise.
--- NOTE | 2018-06-13 19:39 | NUR ---
PATIENT EDUCATED ON POST PACEMAKER RESTRICTIONS, IMMOBILIZER IN PLACE, BR UNTIL AM. ARRIVED BACK FROM PACEMAKER PLACEMENT AT 1230. AFLUTTER, RATE 80S, CONVERTED TO SR AND NOW A PACED AT 60. INCISION WITHOUT SIGNS OF HEMATOMA OR BRUISING. DSG CDI. NO C/O PAIN OR DISCOMFORT.
[2018-06-14 00:25] VITALS: BP 110/61
[2018-06-14 04:23] VITALS: BP 128/64
--- NOTE | 2018-06-14 05:47 | NUR ---
ASSUME CARE 1900. PT/VITALS STABLE. DENIES ANY PAIN. GOOD ACTIVITY TOLETANCE. ASSESSMENT CHARTED. ADEQUATE REST NOTED THROUGH THE NIGHT. FAMILY IN WITH PT. VOIDS ADEQUATELY. 100% PACED. FOLLOWING POST PLACEMENT PROTOCOL. WILL CONTINUE TO MONITOR AND FOLLOW WITH POC
[2018-06-14] MEDS ORDERED: XARELTO15 MG PO (08:34)
[2018-06-14 09:11] VITALS: BP 150/71
[2018-06-14 10:10] VITALS: BP 150/71
--- NOTE | 2018-06-15 13:11 | P ---
[facility] [place] [address] PROCEDURE REPORT Name: DESIREE ROGERS Room #: 213-P [facility] IN ..#: [id number] Admission: 06/12/18 ������������������ Attend Phys: Nirav Hill MD Discharge: 06/14/18 ������������������ Date of : 41 Report #: [id number] THIS REPORT FOR: //name// CC: Nirav Cano PROCEDURE: Pacemaker implantation. PREOPERATIVE DIAGNOSES: 1. Sick sinus syndrome. 2. Symptomatic bradycardia. 3. Tachycardia-bradycardia syndrome. 4. Paroxysmal atrial fibrillation. POSTOPERATIVE DIAGNOSES: 1. Sick sinus syndrome. 2. Symptomatic bradycardia. 3. Tachycardia-bradycardia syndrome. 4. Paroxysmal atrial fibrillation. HISTORY: The patient is a 72-year-old recently admitted after having a fall and fracturing his hip, undergoing hip replacement surgery. He was noted to have episodes of paroxysmal atrial fibrillation in the hospital. He was discharged on flecainide, metoprolol and Xarelto therapy. As an outpatient, he was continued to have palpitations and lightheaded spells. He underwent a director of cardiac cath lab that showed multiple long conversion pauses. The longest was 7 seconds. He then would remain in a junctional rhythm for several minutes with rates in the 30s. He is here for dual chamber pacemaker implantation. ANESTHESIA: The patient underwent MAC anesthesia with no anesthesia related complications. DESCRIPTION OF PROCEDURE: The patient underwent informed consent. We discussed the details of the procedure including the risk, which include but not limited to bleeding, infection, vascular damage, cardiac perforation, pneumothorax. He understood these risks and was willing to proceed. The patient was brought to the EP laboratory in a fasting and sedated state and prepped and draped in a sterile fashion, underwent venography showing patency of the left axillary vein. He received IV vancomycin for antibiotic prophylaxis. Next, I injected lidocaine below the level of left clavicle. Incision was made, pocket was created over the prepectoral fascia and access was obtained twice in the left axillary vein using the extrathoracic approach with sheaths positioned using the modified Seldinger technique. Next, under fluoroscopy, a lead was positioned into the right ventricular basal septum and the other lead was placed in the right atrial appendage. Both leads had adequate pacing and sensing thresholds. The leads were sutured to the prepectoral fascia. The device was [address] [address] PROCEDURE REPORT Name: SUEDESIREEJOSE AGUILAR Room #: 213-P [facility] IN ..#: [id number] Admission: 06/12/18 ������������������ Attend Phys: Nirav Hill MD Discharge: 06/14/18 ������������������ Date of : 41 Report #: [id number] connected to the leads, tested and found to be functioning normally. The patient had gone into atrial fibrillation in the morning and we attempted to cardiovert him to check an atrial threshold, but he would not maintain a sinus rhythm for more than a few seconds. Next, the pocket was irrigated with vancomycin solution. The pocket was closed in 2 layers using 2-0 for the deep layer, 3-0 for the mid layer and surgical glue was placed to the skin layer. The patient awoke neurologically and hemodynamically intact with no complications and no significant bleeding. The implanted pacemaker was a [employer] model #[id number], serial #[id number]. The atrial lead was a [employer] model #2088TC, serial #[id number] with a P-wave of 3.2 millivolts, pacing impedance of 410 ohms and a threshold could not be checked due to atrial fibrillation. Next, the RV lead was a [employer] model #2088TC, 58 cm, serial #[id number]. The RV lead demonstrated an R-wave of 5.6 millivolts, pacing impedance of 700 ohms and the pacing threshold of 1.25 volts at 0.4 milliseconds. The device was programmed to the DDDR 60-130 mode. CONCLUSIONS: 1. Successful dual-chamber pacemaker implantation. 2. Satisfactory atrial and ventricular lead characteristics. ��������������������������������������������� <ELECTRONICALLY SIGNED> ���������������������������������������� By: Nirav Hill MD ��������������������������������������������� 06/15/18 1311 0820 1841 Nirav Hill MD /nt
== END 2018-06-14 11:44 | disposition home or self-care (01) | DRG 244 ==
LOC: 2N 15:38 → ENTRNSPT 06-14 11:01 → EDTRNSPTSTS 06-14 11:05 → 2N 06-14 11:44
PROVIDERS: ADMIT Internal Medicine Cardiovascular Disease
DX: I49.5 Sick sinus syndrome (principal); I48.0 Paroxysmal atrial fibrillation; I12.9 Hypertensive chronic kidney disease with stage 1 through stage 4 chronic kidney disease, or unspecified chronic kidney disease; G89.29 Other chronic pain; M25.559 Pain in unspecified hip; N18.9 Chronic kidney disease, unspecified; I45.5 Other specified heart block; Z85.51 Personal history of malignant neoplasm of bladder; Z87.442 Personal history of urinary calculi; Z79.899 Other long term (current) drug therapy
CPT/HCPCS: 10081; 62110; 62900; 70005

== ENCOUNTER → 2018-10-15 | Outpatient (CLI) | payer OTHER, BC ==
[~2018-10-15] VITALS: Ht 182.9 cm; Wt 77.1 kg
[~2018-10-15] MED LIST changes: +KLOR-CON M2020 MEQ PO; +LASIX 40 MG TAB40 M2 PO; +XARELTO15 MG PO
[2018-10-15 07:39] VITALS: BP 169/78
--- NOTE | 2018-10-15 08:38 | TEE ---
[facility] [address] [place] [address] TRANSESOPHAGEAL ECHOCARDIOGRAM Name: DESIREE ROGERS Room #: REG [facility]#: [id number] ������������� Admission: 10/15/18 ������������� Attend Phys: Oz Slater, Discharge: ��� ������������� ��� Date of : 41 Date of Service: 10/15/18 0837 �� Report #: [id number] �������� ��������������������������������������������[id number] THIS REPORT FOR: //name// APPROVED REPORT Study performed: 10/15/2018 07:40:59 EXAM: Comprehensive 2D, Doppler, and color-flow Echocardiogram Patient Location: Out-Patient Status: routine BSA: 1.97 HR: 60 bpm BP: 107/61 mmHg Rhythm: NSR Other Information Study Quality: Good Indications Atrial Fibrillation Echo Enhancing Agent Indication: Rule out Shunt Agent(s) / Amount(s) Used: Agitated Saline 6 cc Procedure After obtaining informed consent, patient underwent transesophageal echo in the [facility]. Type of Sedation : Conscious Sedation Sedation was administered by Daniela Felipe RN. Sedation was achieved intravenously with: Versed (3) Fentanyl (75) Transesophageal probe was inserted and advanced into esophagus without difficulty by Oz Slater MD. Echo enhancement indication: R/O Septal defect. The LUKAS was performed without complications. Throughout the procedure, the blood pressure, pulse oximetry, cardiac rhythm, and rate were monitored. The patient tolerated the procedure without adverse effects. Recovery from conscious sedation was uneventful and vital signs were stable. Left Ventricle The left ventricle is normal size. There is normal LV segmental wall [facility] [address] [place] [address] TRANSESOPHAGEAL ECHOCARDIOGRAM Name: DESIREE ROGERS Room #: REG [facility]#: [id number] ������������� Admission: 10/15/18 ������������� Attend Phys: Oz Slater, Discharge: ��� ������������� ��� Date of : 41 Date of Service: 10/15/18 0837 �� Report #: [id number] �������� ��������������������������������������������[id number] motion. There is normal left ventricular wall thickness. Left ventricular systolic function is normal. LVEF 60%. Right Ventricle The right ventricle is normal size. The right ventricular systolic function is normal. Atria The left atrium is mildly enlarged. No thrombus is visualized in the left atrium or appendage. No shunting noted by contrast bubble injection. The right atrium size is normal. Aortic Valve Aortic valve is trileaflet. No aortic regurgitation is present. There is no aortic valvular stenosis. 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 No evidence of mitral valve stenosis. Tricuspid Valve The tricuspid valve is normal in structure. Mild tricuspid regurgitation. Pulmonic Valve The pulmonary valve is normal in structure. Trace pulmonic regurgitation. Great Vessels The aortic root is normal in size. The ascending aorta is normal in size. IVC is normal in size and collapses >50% with inspiration. Pericardium There is no pericardial effusion. <Conclusion> Left ventricular systolic function is normal. There is normal LV segmental wall motion. LVEF 60%. The left atrium is mildly enlarged. No thrombus is visualized in the left atrium or appendage. Prominent pectinate muscle No shunting noted by contrast bubble injection. Aortic valve is trileaflet. 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 Moderate mitral regurgitation. There is no pericardial effusion. ��������������������������������������������� <ELECTRONICALLY SIGNED> ���������������������������������������� By: Oz Slater MD, FACC ��������������������������������������������� 10/15/1837 6 6 Oz Slater MD, FACC /INF
== END | disposition home or self-care (01) ==
LOC: CATH 00:37
DX: I34.0 Nonrheumatic mitral (valve) insufficiency (principal); I42.9 Cardiomyopathy, unspecified; I10 Essential (primary) hypertension; Z98.890 Other specified postprocedural states; Z87.891 Personal history of nicotine dependence; Z79.01 Long term (current) use of anticoagulants; Z87.442 Personal history of urinary calculi; Z85.51 Personal history of malignant neoplasm of bladder; Z79.899 Other long term (current) drug therapy

== ENCOUNTER → 2018-10-17 | Outpatient (CLI) | payer OTHER, BC ==
[2018-10-17 07:51] LABS: HEMATOCRIT 40.4 % (42.0-52.0); HEMOGLOBIN 13.5 gm/dL (14.0-18.0); MCH 29.2 pg (26.0-34.0); MCHC 33.4 g/dL (28.0-37.0); MCV 87.4 fL (80.0-100.0); RBC 4.62 mil/uL (4.50-6.00); RDW 16.3 % (10.5-14.5); WBC 5.7 thou/uL (4.0-11.0)
[2018-10-17 08:21] LABS: ALBUMIN 3.4 g/dL (3.4-5.0); CALCIUM 8.6 mg/dL (8.5-10.1); CREATININE 1.1 mg/dL (0.7-1.3); POTASSIUM 4.2 mmol/L (3.5-5.1); TOTAL BILIRUBIN 0.3 mg/dL (<0.1-1.0); TOTAL PROTEIN 6.6 g/dL (6.4-8.2)
== END ==
LOC: CAT 07:19
PROVIDERS: Internal Medicine Cardiovascular Disease
DX: I48.91 Unspecified atrial fibrillation (principal); M47.814 Spondylosis without myelopathy or radiculopathy, thoracic region; N28.1 Cyst of kidney, acquired

== ENCOUNTER 2018-10-18 06:19 | Observation (INO) | payer OTHER, BC ==
[~2018-10-18] VITALS: Ht 182.9 cm; Wt 77.1 kg
[2018-10-18 07:10] VITALS: BP 133/76
[2018-10-18 07:29] LABS: ABSOLUTE NEUTROPHILS 4.7 thou/uL (1.4-8.2); BASOPHILS 0.5 % (0.0-2.0); EOSINOPHILS 2.2 % (0.0-3.0); HEMATOCRIT 41.8 % (42.0-52.0); HEMOGLOBIN 13.9 gm/dL (14.0-18.0); LYMPHOCYTES 18.8 % (24.0-44.0); MCH 29.4 pg (26.0-34.0); MCHC 33.4 g/dL (28.0-37.0); MONOCYTES 7.7 % (1.0-8.0); PLATELET COUNT 201 thou/uL (150-400); POLYS 70.8 % (36.0-66.0); RBC 4.75 mil/uL (4.50-6.00); RDW 16.6 % (10.5-14.5); WBC 6.6 thou/uL (4.0-11.0)
[2018-10-18 07:30] LABS: CALCIUM 9.2 mg/dL (8.5-10.1); CREATININE 1.2 mg/dL (0.7-1.3)
[2018-10-18 07:36] LABS: ALBUMIN 3.2 g/dL (3.4-5.0); TOTAL BILIRUBIN 0.4 mg/dL (<0.1-1.0); TOTAL PROTEIN 6.8 g/dL (6.4-8.2)
[2018-10-18 07:37] LABS: APTT 30.7 Seconds (24.5-32.8); INR 1.1
--- NOTE | 2018-10-18 17:56 | NUR ---
TO UNIT POST ABLATION. PT ORITENTED TO ROOM AND BEDSAPCE. ASSESSMENT CHARTED - PT VSS. - GROIN SITE STABLE. PT TOLERATING DIET AND FLUIDS. BEDREST COMPLETE- PATIENT HAS STARTED MOVING AROUND IN BED. NO CO'S OF PAIN OR NAUSEA. NO CO'S AT THE PRESENT TIME.
[2018-10-18 20:05] VITALS: BP 124/73
[2018-10-19] VITALS: BP 131/49
--- NOTE | 2018-10-19 04:39 | NUR ---
PT RESTING IN BED. SA WITH APACED OCCASIONALLY. PT RIGHT GROING POST ABLASION ON 10/18 REMAINS SOFT WITH DRIED BLOOD.
[2018-10-19 04:45] VITALS: BP 106/64
[2018-10-19 07:54] VITALS: BP 124/79
[2018-10-19 09:33] VITALS: BP 124/79
--- NOTE | 2018-10-19 10:55 | NUR ---
ASSESSMENT CHARTED - PT OPTED TO TAKE AM MEDS AT HOME. UP AD ABDIRASHID IN ROOM. ANY DIET AND FLUIDS WITH NO CO'S OF NAUSEA. NO CO'S OF PAIN. GROIN SITE STABLE KELLE. PT HOME THIS AM. INSTRUCTION RE HOME MEDS/ FOLLOW AND CARE GIVEN TO PATIENT AND . STATED UNDERSTANDING OF INSTRUCTION GIVEN. PT LEFT THE UNIT VIA WHEEL CHAIR - HOME VIA PVT VEHICLE ACCOMAPNIED BY . IV AND MONITOR D/C'D PRIOR TO D/C. NO CO'S AT TIME OF DISCHARGE.
== END 2018-10-19 10:17 | disposition home or self-care (01) ==
LOC: CATH 06:19 → 2N 13:17 → ENTRNSPT 10-19 09:51 → EDTRNSPTSTS 10-19 10:02 → 2N 10-19 10:17
PROVIDERS: ADMIT Internal Medicine Cardiovascular Disease
DX: I48.0 Paroxysmal atrial fibrillation (principal); I10 Essential (primary) hypertension; N28.9 Disorder of kidney and ureter, unspecified; Z98.890 Other specified postprocedural states; Z79.899 Other long term (current) drug therapy; Z96.649 Presence of unspecified artificial hip joint
CPT/HCPCS: 62110; 62900; 65040; 70005

== ENCOUNTER → 2019-04-23 | Outpatient (CLI) | payer OTHER, BC | LOC: SJCVC 16:23 | DX: Z45.018 Encounter for adjustment and management of other part of cardiac pacemaker (principal); R94.31 Abnormal electrocardiogram [ECG] [EKG]; I49.5 Sick sinus syndrome; I48.0 Paroxysmal atrial fibrillation; I10 Essential (primary) hypertension; Z79.899 Other long term (current) drug therapy; Z87.891 Personal history of nicotine dependence ==

== ENCOUNTER → 2019-10-31 | Outpatient (CLI) | payer OTHER, BC | LOC: SJCVC 13:03 | PROVIDERS: ATTEND Internal Medicine Cardiovascular Disease | DX: Z45.018 Encounter for adjustment and management of other part of cardiac pacemaker (principal); I45.10 Unspecified right bundle-branch block; R00.1 Bradycardia, unspecified; R94.31 Abnormal electrocardiogram [ECG] [EKG]; I48.0 Paroxysmal atrial fibrillation; I12.9 Hypertensive chronic kidney disease with stage 1 through stage 4 chronic kidney disease, or unspecified chronic kidney disease; N18.9 Chronic kidney disease, unspecified; Z87.891 Personal history of nicotine dependence; Z79.899 Other long term (current) drug therapy ==

== ENCOUNTER → 2020-11-19 | Outpatient (CLI) | payer OTHER, BC | LOC: SJCVC 14:31 | PROVIDERS: ATTEND Internal Medicine Cardiovascular Disease | DX: I49.5 Sick sinus syndrome (principal); I48.0 Paroxysmal atrial fibrillation; I12.9 Hypertensive chronic kidney disease with stage 1 through stage 4 chronic kidney disease, or unspecified chronic kidney disease; N18.9 Chronic kidney disease, unspecified; Z95.0 Presence of cardiac pacemaker; Z87.891 Personal history of nicotine dependence ==